=== PATIENT | female | born 1940 | race Caucasian/White ===

== ENCOUNTER → 2017-02-17 20:24 | Outpatient (CLI) | payer MEDICARE | END | disposition home or self-care (01) | LOC: D.LABREF 20:24 | DX: R30.0 Dysuria (principal) ==

== ENCOUNTER → 2017-06-18 20:40 | Outpatient (CLI) | payer MEDICARE | END | disposition home or self-care (01) | LOC: D.LABREF 20:40 | DX: R25.1 Tremor, unspecified (principal) ==